=== PATIENT | female | born 1980 | race Two or more races ===

== ENCOUNTER 2016-03-18 09:38 | Emergency (ER) | payer OTHER ==
[~2016-03-18] VITALS: Ht 162.6 cm; Wt 76.0 kg
[2016-03-18 09:42] VITALS: Ht 162.6 cm; Wt 76.0 kg
[2016-03-18] MEDS ORDERED: CLON0.5T4 PO (11:44)
[2016-03-18] MEDS ORDERED: CHLO100T11 PO (11:44)
[2016-03-18] MEDS ORDERED: BENZ1TAB7 PO (11:44)
[2016-03-18] MEDS ORDERED: OLAN10TA7 PO (11:44)
[2016-03-18] MEDS ORDERED: PROP10TA6 PO (11:44)
--- NOTE | 2016-03-18 12:06 | ERD ---
ER Documentation Chief Complaint Date/Time DATE: 03/18/16 TIME: 12:03 Chief Complaint pt bib family "for meds" HPI 36-year-old female with a past medical history of psychosis and is Occitan speaking presents to the ED for a medication refill. States that she just moved here in January 2016. Reports that her psychiatrist is Dr. Kaden Nazario. States that she has no primary care physician here in the ED. States that she takes Zyprexa, denies depression, clonazepam, Meprozine for her psychosis. Denies any chest pain, shortness of breath, abdominal pain, nausea, vomiting. Denies any suicidal or homicidal ideations. ROS All systems reviewed and are negative except as per history of present illness. Medications Home Meds Active Scripts Olanzapine* (Zyprexa*) 10 Mg Tablet, 10 MG PO QHS, #30 TAB Prov:OLIMPIA KELLOGG PA-C 03/18/16 Benztropine Mesylate* (Benztropine Mesylate*) 1 Mg Tablet, 1 MG PO BID, #60 TAB Prov:OLIMPIA KELLOGG PA-C 03/18/16 Clonazepam* (Clonazepam*) 0.5 Mg Tablet, 0.5 MG PO QHS, #30 TAB Prov:OLIMPIA KELLOGG PA-C 03/18/16 Propranolol Hcl* (Propranolol Hcl*) 10 Mg Tablet, 10 MG PO BID, #60 TAB Prov:OLIMPIA KELLOGGC 03/18/16 Chlorpromazine Hcl* (Chlorpromazine Hcl*) 100 Mg Tablet, 100 MG PO QHS, #30 TAB Prov:OLIMPIA KELLOGG PA-C 03/18/16 Allergies Allergies: Coded Allergies: No Known Allergy (Unverified , 03/18/16) Physical Exam Vitals Vital Signs Date Time Temp Pulse Resp B/P Pulse Ox O2 Delivery O2 Flow Rate FiO2 03/18/16 09:42 97.8 85 18 136/63 99 Physical Exam Const: [id number], well-nourished. In no acute distress. Head: Atraumatic, normocephalic Eyes: Normal Conjunctiva without injection. No purulent discharge. PERRLA. EOMI ENT: Normal external ear. Ear canal without erythema. Tympanic membrane pearly munoz without effusion or bulging. Nasal canal clear with normal turbinates. Moist oropharynx without tonsillar exudates. Non-erythematous pharynx. Uvula midline. No drooling. No trismus. Neck: No cervical midline tenderness. Full range of motion. No meningismus. No cervical lymphadenopathy. No JVD. Resp: Clear to auscultation bilaterally. No wheezing, rhonchi, rales, or crackles. No accessory muscle use. No retractions. Cardio: Regular rate and rhythm. No murmurs, rubs or gallops. Abd: Soft, non tender, non distended. Normal bowel sounds. No palpable masses. No rebound tenderness. No guarding. Negative McBurney's Point. Negative Kingsley's Sign. Skin: Normal skin turgor. No petechiae or rashes Back: No midline tenderness. No CVA tenderness. Ext: No cyanosis, or edema. Distal pulses intact bilaterally. Neur: Awake and alert. Normal gait. Normal coordination. Cranial Nerves II- VII intact. Normal finger to nose. Muscle strength 5/5. Sensation intact. Psych: Normal Mood and Affect Procedures/MDM This is a 36-year-old female with a past medical history of psychosis and is Occitan speaking. Patient is here for a medication refill. This case was discussed with my supervising physician, Dr. Rebolledo. Stated that we can proceed with refilling patient's medications. I strictly instructed patient to follow-up with a family doctor for a referral to psychiatrist for further maintenance of her medications. Phone tool and die supervisor in Occitan was used at this time. There is a suspicion for any emergent conditions, suicidal or homicidal ideations, acute [place]. Discharge medications: Zyprexa, benztropine, clonazepam, propranolol, Chlorpromazine Follow up with primary care physician in 1-2 days. Instructed patient to return to the ED sooner for any worsening symptoms. Patient's questions were answered. Patient understood and agreed with discharge plan. Patient discharged stable. Departure Diagnosis: Primary Impression: Encounter for medication refill Condition: Stable Patient Instructions: Taking Medicine Safely, Psychosis Referrals: COMMUNITY CLINICS YOU HAVE RECEIVED A MEDICAL SCREENING EXAM AND THE RESULTS INDICATE THAT YOU DO NOT HAVE A CONDITION THAT REQUIRES URGENT TREATMENT IN THE EMERGENCY DEPARTMENT. FURTHER EVALUATION AND TREATMENT OF YOUR CONDITION CAN WAIT UNTIL YOU ARE SEEN IN YOUR DOCTORS OFFICE WITHIN THE NEXT 1-2 DAYS. IT IS YOUR RESPONSIBILITY TO MAKE AN APPOINTMENT FOR FOLOW-UP CARE. IF YOU HAVE A PRIMARY DOCTOR --you should call your primary doctor and schedule an appointment IF YOU DO NOT HAVE A PRIMARY DOCTOR YOU CAN CALL OUR PHYSICIAN REFERRAL HOTLINE AT IF YOU CAN NOT AFFORD TO SEE A PHYSICIAN YOU CAN CHOSE FROM THE FOLLOWING [facility] [address] [facility] [address] [facility] [address] [facility] [address] [facility] [address] [facility]. [facility] [address] [facility]. [facility] YOU HAVE RECEIVED A MEDICAL SCREENING EXAM AND THE RESULTS INDICATE THAT YOU DO NOT HAVE A CONDITION THAT REQUIRES URGENT TREATMENT IN THE EMERGENCY DEPARTMENT. FURTHER EVALUATION AND TREATMENT OF YOUR CONDITION CAN WAIT UNTIL YOU ARE SEEN IN YOUR DOCTORS OFFICE WITHIN THE NEXT 1-2 DAYS. IT IS YOUR RESPONSIBILITY TO MAKE AN APPOINTMENT FOR FOLOW-UP CARE. IF YOU HAVE A PRIMARY DOCTOR --you should call your primary doctor and schedule and appointment IF YOU DO NOT HAVE A PRIMARY DOCTOR YOU CAN CALL OUR PHYSICIAN REFERRAL HOTLINE AT . IF YOU CAN NOT AFFORD TO SEE A PHYSICIAN YOU CAN CHOSE FROM THE FOLLOWING [facility]: [facility] [address] [place] [address] [facility] [address] [place] [address] [facility] [address] [place] [address] [facility] URGENT CARE/SPECIALTIES Additional Instructions: You must follow up with a family doctor who will refer you to a psychatrist in two to three days for further evaluation and management of your medications. Take your medications as indicated on the prescription. Return to the emergency room for any worsening symptoms. OLIMPIA KELLOGG PA-C Mar 18, 2016 12:06
== END 2016-03-18 12:33 | disposition home or self-care (01) ==
LOC: FTE 09:38
DX: Z76.0 Encounter for issue of repeat prescription (principal)
CPT/HCPCS: 99281